=== PATIENT | male | born 1965 | race African-American/Black ===

== ENCOUNTER 2021-07-19 11:44 | Emergency (ER) | payer MEDICAID ==
[~2021-07-19] VITALS: Ht 182.9 cm; Wt 83.0 kg
[2021-07-19] MEDS ORDERED: MORPHINE SULFATE 2 MG/ML CPJ (NOT FOR IM USE) IV ONE (12:30)
[2021-07-19] MEDS ORDERED: PROPOFOL 200MG/20ML VIAL IV ONE (13:30)
[2021-07-19] MEDS ORDERED: KETOROLAC 30MG/ML VIAL IV ONE (14:00)
[2021-07-19 15:49] VITALS: BP 142/78
== END 2021-07-19 15:53 | disposition home or self-care (01) ==
LOC: ER 11:56
DX: S43.085A Other dislocation of left shoulder joint, initial encounter (principal); M21.822 Other specified acquired deformities of left upper arm; Y04.0XXA Assault by unarmed brawl or fight, initial encounter; Y93.89 Activity, other specified; Y92.488 Other paved roadways as the place of occurrence of the external cause
CPT/HCPCS: 73030; 96374; 96375; 99152; 99285; J1885; J2270; J2704